=== PATIENT | female | born 1960 | race Caucasian/White ===

== ENCOUNTER → 2024-03-12 | Outpatient (CLI) | payer MEDICARE, OTHER ==
[~2024-03-12] MED LIST: NORCO 325 MG-51 TAB PO; PROTONIX 40MG T40 MG PO; VITAMIN D 50,1.25 MG PO; ZOLOFT 25MG25 MG PO
== END ==
LOC: MC.RAD 09:58
DX: C50.111 Malignant neoplasm of central portion of right female breast (principal); Z17.1 Estrogen receptor negative status [ER-]; Z98.890 Other specified postprocedural states